=== PATIENT | male | born 1990 | race Caucasian/White ===

== ENCOUNTER 2018-06-30 22:20 | Emergency (ER) | payer OTHER ==
[~2018-06-30] VITALS: Ht 175.3 cm; Wt 89.7 kg
[2018-06-30 22:23] VITALS: Ht 175.3 cm; Wt 89.7 kg
[2018-07-01] MEDS ORDERED: ERYT1OIN6 BOTH EYES (04:57)
[2018-07-01] MEDS ORDERED: AMOX500C2 PO (04:57)
--- NOTE | 2018-07-01 05:00 | ERD ---
ER Documentation Chief Complaint Chief Complaint sore throat/redness both eyes with discharge x 1 week HPI 28-year-old male is here with 3 days of bilateral eye redness with purulent drainage and crusting in the morning. Also has sore throat and right-sided ear pain. No fever. Mild dry cough and runny nose. Has not taken any medications for his symptoms. ROS All systems reviewed and are negative except as per history of present illness. Medications Home Meds Active Scripts Erythromycin Base (Erythromycin) 1 Gm Oint...g., 1 APPLIC BOTH EYES QID for 7 Days Prov:CRISTIAN STEWART PA-C 07/01/18 Amoxicillin* (Amoxicillin*) 500 Mg Cap, 500 MG PO BID for 7 Days, CAP Prov:CRISTIAN STEWART PA-C 07/01/18 Allergies Allergies: Coded Allergies: No Known Drug Allergies (Verified Allergy, Unknown, 06/30/18) FmHx Family History: No diabetes Physical Exam Vitals Vital Signs Date Temp Pulse Resp B/P (MAP) Pulse Ox O2 O2 Flow FiO2 Time Delivery Rate 06/30/18 98.7 113 20 180/90 97 22:23 (120) Physical Exam Const: No acute distress Head: Atraumatic Eyes: Bilateral conjunctival injection with purulent exudates in eyelashes ENT: Oropharynx clear, right tympanic membrane erythematous, left ear within normal limits Neck: Full range of motion. No meningismus. Resp: Clear to auscultation bilaterally Cardio: Regular rate and rhythm, no murmurs Procedures/MDM This patient is here with otitis media in the right ear and conjunctivitis. Will be treated outpatient with erythromycin ophthalmic ointment and amoxicillin. Patient counseled regarding my diagnostic impression and care plan. Prior to discharge all questions answered. Pt agrees with treatment plan and understands strict return precautions. Pt is instructed to follow up with primary care provider within 24-48 hours. Precautionary instructions provided including instructions to return to the ER if not improving or for any worsening or changing symptoms or concerns. Departure Diagnosis: Primary Impression: Otitis media Additional Impression: Conjunctivitis Condition: Stable Patient Instructions: Otitis Media, Abx Tx (Adult) Additional Instructions: Call your primary care doctor TOMORROW for an appointment during the next 1-2 days.See the doctor sooner or return here if your condition worsens before your appointment time. CRISTIAN STEWART PA-C Jul 01, 2018 05:00
[2018-07-01 05:09] VITALS: BP 156/90; PULSE 100; RESP 18
== END 2018-07-01 05:40 | disposition home or self-care (01) ==
LOC: FTE 22:20
DX: H66.91 Otitis media, unspecified, right ear (principal); H10.9 Unspecified conjunctivitis
CPT/HCPCS: 99283